=== PATIENT | male | born 1995 | race African-American/Black ===

== ENCOUNTER 2020-07-31 11:29 | Emergency (ER) | payer MEDICAID ==
[~2020-07-31] VITALS: Ht 172.7 cm; Wt 75.0 kg
[2020-07-31] MEDS ORDERED: IBUP-2028 MT (12:11)
[2020-07-31] MEDS ORDERED: AMOX-494 MT (12:11)
[2020-07-31] MEDS ORDERED: AMOXICILLIN 500 MG CAPSULE PO ONE (12:30)
[2020-07-31] MEDS ORDERED: IBUPROFEN 600MG TABLET PO ONE (12:30)
[2020-07-31 12:39] VITALS: BP 133/80
== END 2020-07-31 12:48 | disposition home or self-care (01) ==
LOC: ER 11:29
DX: J02.9 Acute pharyngitis, unspecified (principal); J45.909 Unspecified asthma, uncomplicated
CPT/HCPCS: 99283

== ENCOUNTER 2024-10-05 11:33 | Emergency (ER) | payer MEDICAID ==
[~2024-10-05] VITALS: Ht 185.4 cm; Wt 112.0 kg
[~2024-10-05 11:33] MED LIST: AMOX-494 MT; IBUP-2028 MT
[2024-10-05 11:41] VITALS: O2SAT 98
[2024-10-05] MEDS: MAGNESIUM/ALUMINUM HYDROXIDE/SIMETHICONE 30ML UDC PO ONE (12:27)
[2024-10-05] MEDS: FAMOTIDINE 20MG TABLET PO ONE (12:27)
[2024-10-05] MEDS: ONDANSETRON 4MG ODT PO ONE (12:28)
[2024-10-05 12:41] LABS: BASOPHILS % 1.2 % (0.0-2.0); EOSINOPHILS % 1.1 % (0.0-5.0); HEMATOCRIT. 45.1 % (42.0-52.0); HEMOGLOBIN. 15.6 g/dL (14.0-18.0); LYMPHOCYTES % 38.4 % (20.0-50.0); MEAN CORPUSCULAR HEMOGLOBIN 31.4 pg (28.0-32.0); MEAN CORPUSCULAR HGB CONC 34.7 g/dL (31.0-37.0); MEAN CORPUSCULAR VOLUME 90.5 fL (80.0-94.0); MEAN PLATELET VOLUME 7.8 fl (7.4-10.4); MONOCYTES % 5.6 % (2.0-8.0); NEUTROPHILS % 53.7 % (40.0-76.0); PLATELET 292 x1000/uL (130-400); RED BLOOD CELL COUNT 4.98 mill/uL (4.7-6.1); RED CELL DISTRIBUTION WIDTH 13.6 % (11.6-14.6); WHITE BLOOD COUNT 7.3 x1000/uL (4.5-11.0)
[2024-10-05 12:44] LABS: CLARITY URINE CLEAR (CLEAR); COLOR URINE YELLOW (YELLOW); GLUCOSE URINE NEGATIVE (NEGATIVE); KETONES URINE NEGATIVE (NEGATIVE); LEUKOCYTE ESTERASE URINE NEGATIVE (NEGATIVE); NITRITE URINE NEGATIVE (NEGATIVE); OCCULT BLOOD URINE NEGATIVE (NEGATIVE); PROTEIN URINE NEGATIVE (NEGATIVE); UROBILINOGEN URINE 0.2 E.U./dL (0.2-1.0)
[2024-10-05 12:50] LABS: CHLORIDE 106 mEq/L (98-107); SODIUM 138 mEq/L (136-145)
[2024-10-05 12:52] LABS: CARBON DIOXIDE 23 mEq/L (21-32)
[2024-10-05 12:53] LABS: CALCIUM 9.8 mg/dL (8.7-10.4)
[2024-10-05 12:57] LABS: CREATININE 1.1 mg/dL (0.6-1.3)
[2024-10-05 12:58] LABS: GLUCOSE 102 mg/dL (70-105); UREA NITROGEN BLOOD 9 mg/dL (9-23)
[2024-10-05 12:59] LABS: ALANINE AMINOTRANSFERASE 35 IU/L (10-49); ALBUMIN 4.9 g/dL (3.2-4.8)
[2024-10-05 13:00] LABS: ASPARTATE AMINOTRANSFERASE 39 IU/L (<34); BILIRUBIN DIRECT 0.4 mg/dL (<=3.0); BILIRUBIN TOTAL 1.5 mg/dL (0.1-1.0); PROTEIN TOTAL 7.7 g/dL (6.0-8.3)
[2024-10-05] MEDS ORDERED: DOXY100C5 MT (14:15)
[2024-10-05 14:20] VITALS: BP 158/88; PULSE 76; RESP 16; TEMP 36.6; O2SAT 98
== END 2024-10-05 14:28 | disposition home or self-care (01) ==
LOC: ER 11:33
DX: R10.13 Epigastric pain (principal); J45.909 Unspecified asthma, uncomplicated; Z11.3 Encounter for screening for infections with a predominantly sexual mode of transmission
CPT/HCPCS: 99284; 86592; 80076; 80048; 81003; 83690; 85025; 36415; Q0162